=== PATIENT | female | born 1950 | race Caucasian/White ===

== ENCOUNTER 2022-06-22 08:56 | Outpatient (CLI) | payer BC, SELFPAY ==
--- NOTE | 2022-06-22 09:15 | CRLHL7_ITS ---
For Patients: As a result of the Century Cures Act, medical imaging exams and procedure reports are released immediately into your electronic medical record. You may view this report before your referring provider. If you have questions, please contact your health care provider. BILATERAL SCREENING MAMMOGRAM WITH COMPUTER-AIDED DETECTION AND TOMOSYNTHESIS TECHNIQUE: CC and MLO views were obtained. These mammographic images have been obtained using full-field digital technique. These mammographic images were interpreted with the benefit of computer-aided detection. Breast Tomosynthesis was used in this interpretation. COMPARISON FILM: 06/16/21, 06/12/20. FINDINGS: There are scattered areas of fibroglandular density IMPRESSION: There is no radiographic evidence for malignancy. ASSESSMENT: BI-RADS Category 1: Negative RECOMMENDATION: Routine screening mammogram in 1 year. A lay language report of this examination will be provided to the patient. Wanda Sanchez M.D. Diagnostic/Breast Radiologist [email or web address] RG/Dictated by: Wanda Sanchez MD @ 06/22/2022 10:48:00 AM (Electronically Signed)
== END 2022-06-22 08:57 | disposition home or self-care (01) ==
LOC: MAMMO 08:57
PROVIDERS: PCP Internal Medicine; Visit Provider Internal Medicine
DX: Z12.31 Encounter for screening mammogram for malignant neoplasm of breast (principal)
CPT/HCPCS: 77063; 77067

== ENCOUNTER 2022-06-24 14:00 | Outpatient (CLI) | payer MEDICARE, SELFPAY ==
--- NOTE | 2022-06-24 14:30 | CRLHL7_ITS ---
For Patients: As a result of the Century Cures Act, medical imaging exams and procedure reports are released immediately into your electronic medical record. You may view this report before your referring provider. If you have questions, please contact your health care provider. DXA BONE MINERAL DENSITY STUDY Reason for exam: Osteopenia. Current height (in): 67. Weight (lb): 148. Menopause age: 57. Ethnicity: White. 1. Have you had a previous hip or vertebral fracture? No. 2. Have you had any fractures during your adult life which did not result from significant trauma (e.g., auto accident)? No. 3. Did either of your parents have a hip fracture? No. 4. Do you smoke? No. 5. Have you ever taken Glucocorticoids? No. 6. Do you have rheumatoid arthritis? No. 7. Do you have secondary osteoporosis? No. 8. Do you drink 3 or more alcoholic drinks per day? No. 9. Are you being treated for osteoporosis? No. 10. Have you ever taken any of the following medications: Actonel, Evista, Fosamax, Miacalcin, Reclast, Boniva, Forteo, HRT (i.e. estrogen/hormone therapy), Protelos, Prolia, Vitamin D, Calcium, other ??? please specify. ANSWER: Yes, Actonel, Reclast, vitamin D, calcium, Boniva. 11. Do you have any of the following medical conditions: Anorexia or bulimia, asthma or emphysema, end stage renal disease, hyperparathyroidism, any seizure disorders, cancer, inflammatory bowel diseases, hysterectomy, other ??? please specify. ANSWER: Yes, hysterectomy. 12. What was your maximum height (inches)? 67. 13. Do you perform weight bearing exercise regularly? Yes. 14. Do you regularly consume dairy products? Yes. 15. Do you drink caffeinated beverages? Yes. 16. At what age did your period start? 18. 17. Are you premenopausal? No. 18. How many full term pregnancies have you had? 2. 19. Have you ever missed your period for more than 6 months in a row (not including or menopause)? No. TECHNIQUE: Bone mineral density study was performed using the [facility]. FINDINGS: The results of the study expressed as bone mineral density (BMD) are as follows: Lumbar spine L1 to L4: BMD: 0.834 g/cm2. T-score: -1.9. Z-score: 0.2. Neck Left: BMD: 0.638 g/cm2. T-score: -1.9. Z-score: -0.1. Right: BMD: 0.694 g/cm2. T-score: -1.4. Z-score: 0.4. Total Left: BMD: 0.818 g/cm2. T-score: -1.0. Z-score: 0.5. Right: BMD: 0.897 g/cm2. T-score: -0.4. Z-score: 1.1 IMPRESSION: Osteopenia. *Comparison exams done prior to 02/2020 were performed on different unit, [employer]. COMPARISON: Compared with scan of 06/12/2020, the bone mineral density has increased by 4.2 percent at the hip. FRAX 10-year Fracture Risk Major Osteoporotic Fracture: 11 percent Hip Fracture: 1.9 percent Reported Risk Factors: [place] () Neck KAH=2820, BMI=23.2 Wanda Sanchez M.D. Diagnostic/Breast Radiologist [email or web address] RG/Dictated by: Wanda Sanchez MD @ 06/24/2022 3:24:00 PM (Electronically Signed)
== END 2022-06-24 14:01 | disposition home or self-care (01) ==
LOC: RAD 14:01
PROVIDERS: PCP Internal Medicine; Visit Provider Internal Medicine
DX: M85.852 Other specified disorders of bone density and structure, left thigh (principal)
CPT/HCPCS: 77080

== ENCOUNTER 2022-06-29 09:16 | Outpatient (CLI) | payer MEDICARE, SELFPAY | END 2022-06-29 09:17 | disposition home or self-care (01) | LOC: OP CLINIC 09:17 | PROVIDERS: PCP Internal Medicine; Visit Provider Surgery | DX: Z12.11 Encounter for screening for malignant neoplasm of colon (principal); K57.30 Diverticulosis of large intestine without perforation or abscess without bleeding; Z80.0 Family history of malignant neoplasm of digestive organs | CPT/HCPCS: 45378; 99153; J2250; J2405; J3010 ==

== ENCOUNTER 2022-12-21 08:56 | Outpatient (CLI) | payer MEDICARE, SELFPAY ==
--- NOTE | 2022-12-21 09:15 | MR_ITS ---
[facility] [address] [address] Phone:?[phone] Fax:?[phone] Referring Physician Information: Mary Cabrera M.D. [facility] [address] [facility] [address] Phone:?[phone] Fax:?[phone] Patient:?Sujatha Bower D.O.B:?1950 Sex:?Female Phone:?[phone] [facility] MRN:?[id number] Exam Date:?12/21/2022 ? EXAM: MRI EXAMINATION OF THE RIGHT SHOULDER CLINICAL INFORMATION: Right shoulder pain. Status post injury. No history of surgery to this area. Possible rotator cuff tendon tear. TECHNICAL INFORMATION: Coronal STIR as well as axial, sagittal and coronal PD and T2-weighted images were acquired. INTERPRETATION: Bones: There is no Hill-Sachs impaction deformity. Minimal osseous cystic changes alongside the AC joint. No other bone marrow edema pattern. Rotator Cuff: Series 4 image 11 as well as series 8 image 5 demonstrate a 4 mm moderate grade intrasubstance partial-thickness tear just posterior to the midportion of the supraspinatus tendon insertion. There are mild to moderate changes of supraspinatus tendinopathy. Mild infraspinatus insertional tendinopathy. The teres minor tendon is intact. The subscapularis tendon is intact. No appreciable rotator cuff muscle belly atrophy. Coracoacromial arch: There is no discrete subacromial osseous spur. The bony acromiohumeral interval is measuring 8 mm. There is no thickening identified of the coracoacromial ligament. Acromioclavicular joint: There is a moderate appearance of AC joint DJD. Undersurface productive changes and resultant mild underlying supraspinatus deformity. Moderate fluid and edema signal within the subacromial/subdeltoid bursa areas. Biceps tendon: The long head biceps tendon is intact and nondisplaced from the bicipital groove. No evidence for a tendon tear or any appreciable changes of tendinopathy. Glenohumeral joint and labrum: There is a small glenohumeral joint effusion. No discrete loose body within the joint. Osteochondral surfaces appear relatively preserved. There is an undersurface tear involving the superior aspect of the labrum. No other definite evidence for labral tear. No discrete paralabral cyst is identified. CONCLUSION: 1. Mild to moderate supraspinatus tendinopathy. There is an associated small sized, moderate grade intrasubstance partial tear of the tendon insertion. 2. 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 There is a moderate appearance of subacromial/subdeltoid bursitis. 3. Unremarkable and intact long head biceps tendon without tendon subluxation from the bicipital groove. 4. No appreciable glenohumeral chondromalacia. There is a small joint effusion. 5. There is an undersurface tear involving the superior labrum, without paralabral cyst. KES Electronically signed on 12/21/2022 10:51:00 AM by Cecil Rose M.D.
== END 2022-12-21 08:57 | disposition home or self-care (01) ==
PROVIDERS: PCP Internal Medicine; Visit Provider Internal Medicine
DX: M25.511 Pain in right shoulder (principal); M19.011 Primary osteoarthritis, right shoulder; S43.431D Superior glenoid labrum lesion of right shoulder, subsequent encounter; M75.51 Bursitis of right shoulder
CPT/HCPCS: 73221

== ENCOUNTER 2023-02-07 09:46 | Outpatient (RCR) | payer MEDICARE, SELFPAY ==
--- NOTE | 2023-02-07 10:38 | PT.OPEX ---
PT [place] Outpatient Eval INITIAL EVALUATION NEED SIGNATURE PT [facility] Outpatient Eval Start: 02/07/23 07:38 Freq: Status: Active Protocol: Document 02/07/23 07:38 ETHEL (Rec: 02/07/23 10:34 ETHEL [id number]) E-signed By Sadiq Cardozo DPT Physical Therapy Outpatient Evaluation Insurance Information Recert Due Date 05/03/23 Insurance Name Medicare B,Blue [employer] Shield Medical Diagnosis Rt shoulder RC tear Treating Diagnosis right shoulder pain muscle weakness Referring MD marisa coronado Subjective Subjective Sujatha returns into clinic dealing with R shoulder pain secondary to a tear. She will undergo RCR in march. States she was somewhat undecided on what to do for her HEP that she was last given. Also has some questions about what to expect with RCR surgery and rehab timeline. Date of Surgery (If applicable) 03/28/23 Current Work Status Retired Objective Other/Pertinent Objective SHOULDER AROM WNL on L Flexion: R 145 Abduction: R 140 External Rotation: R 85 NECK/SHOULDER MMT: WNL on L Shoulder shrug: R 5/5 Shoulder flexion: R 4/5 Shoulder abduction: R 4-/5 Shoulder External Rotation: R4 - /5 Shoulder Internal Rotation: R4 + /5 Elbow flexion: R 4+/5 Elbow extension R 5/5 TX: reviewed and discussed what HEP to continue you with banded scaption x 10 with yellow band standing wand flexion x 10 standing wand scaption x 10 standing wand ir x 10 standing wand ER x 10 Assessment Assessment/Impression .assess Pt is a 72 yr old female who presents with concerns of Right shoulder RC tear. She came today hoping to get a HEP that would help prepare for RCR so she has better outcomes . Tolerated session well with demonstration of pain free ROM and strength. Plan of Care Rehabilitation Potential Good Physical Therapy Goals GOAL Pt will be independent with HEP within 1 visit to allow for independence and continued improvement past formal therapy Coordination/Communication With Referral Source Treatment Plan/Direct Interventions Self-Care/Home Management, Therapeutic Activities, Therapeutic Exercises Frequency/Duration 1 visit Patient Will Be Discharged From Therapy Independent w/HEP Evaluation Billing Untimed Code Treatment Minutes 17 Complexity Low Certification Information Initial Certification Date 02/07/23 Ending Certification Date 05/03/23 Physician Comment/Change : Physician NPI Number #
== END 2023-06-07 23:59 | disposition home or self-care (01) ==
PROVIDERS: PCP Internal Medicine; Visit Provider Orthopaedic Surgery Sports Medicine
DX: M19.011 Primary osteoarthritis, right shoulder (principal); S46.011D Strain of muscle(s) and tendon(s) of the rotator cuff of right shoulder, subsequent encounter; M25.511 Pain in right shoulder; M62.81 Muscle weakness (generalized); Z51.89 Encounter for other specified aftercare
CPT/HCPCS: 97110; 97161

== ENCOUNTER 2023-06-23 09:46 | Outpatient (CLI) | payer MEDICARE, SELFPAY ==
--- NOTE | 2023-06-23 10:15 | CRLHL7_ITS ---
For Patients: As a result of the Cures Act, medical imaging exams and procedure reports are released immediately into your electronic medical record. You may view this report before your referring provider. If you have questions, please contact your health care provider. BILATERAL SCREENING MAMMOGRAM WITH COMPUTER-AIDED DETECTION AND TOMOSYNTHESIS TECHNIQUE: CC and MLO views were obtained. These mammographic images have been obtained using full-field digital technique. These mammographic images were interpreted with the benefit of computer-aided detection. Breast Tomosynthesis was used in this interpretation. COMPARISON FILM: 06/22/22, 06/16/21, 06/12/20. FINDINGS: There are scattered areas of fibroglandular density IMPRESSION: There is no radiographic evidence for malignancy. ASSESSMENT: BI-RADS Category 2: Benign RECOMMENDATION: Routine screening mammogram in 1 year. A lay language report of this examination will be provided to the patient. Nnamdi Casas M.D. Diagnostic Radiologist [email or web address] KEEGAN/candy Transcribed: 2:45 p.mPadmini gupta/Dictated by: Nnamdi Casas MD @ 06/23/2023 12:47:00 PM (Electronically Signed)
== END 2023-06-23 09:47 | disposition home or self-care (01) ==
LOC: MAMMO 09:47
PROVIDERS: PCP Internal Medicine; Visit Provider Internal Medicine
DX: Z12.31 Encounter for screening mammogram for malignant neoplasm of breast (principal)
CPT/HCPCS: 77063; 77067

== ENCOUNTER 2023-06-28 09:42 | Outpatient (CLI) | payer MEDICARE, SELFPAY | END 2023-06-28 09:43 | disposition home or self-care (01) | PROVIDERS: PCP Internal Medicine; Visit Provider Internal Medicine | DX: M85.80 Other specified disorders of bone density and structure, unspecified site (principal) | CPT/HCPCS: 80048; 82306 ==

== ENCOUNTER 2023-07-27 13:51 | Outpatient (RCR) | payer MEDICARE, SELFPAY ==
--- NOTE | 2023-06-30 12:18 | URNOTE ---
Request received for authorization for?Zoledronic Acid (Reclast) ([id number]). Prior authorization is approved, pt carries [employer] of [place] approved Reclast from 06/29/2023 to 12/25/2023.
[2023-07-27 14:02] VITALS: BP 108/64; PULSE 92; RESP 17; TEMP 35.7; O2SAT 94
[2023-07-27] MEDS: 0.9 % SODIUM CHLORIDE 250 ml IV (14:45)
== END 2024-01-23 23:59 | disposition home or self-care (01) ==
LOC: CCIC 13:51
PROVIDERS: PCP Internal Medicine; Referring Provider Internal Medicine; Visit Provider Clinical Nurse Specialist
DX: M85.80 Other specified disorders of bone density and structure, unspecified site (principal)
CPT/HCPCS: 96374; J3489; J7050

== ENCOUNTER 2023-08-18 08:23 | Outpatient (CLI) | payer MEDICARE, SELFPAY | END 2023-08-18 08:24 | disposition home or self-care (01) | LOC: NFLDREF 08-19 06:39 | PROVIDERS: PCP Internal Medicine; Referring Provider Internal Medicine; Visit Provider Nurse Practitioner Family | DX: R10.9 Unspecified abdominal pain (principal) | CPT/HCPCS: 87086 ==

== ENCOUNTER 2024-10-17 13:19 | Outpatient (CLI) | payer MEDICARE, SELFPAY | END 2024-10-17 13:20 | disposition home or self-care (01) | LOC: RAD 13:21 | PROVIDERS: PCP Family Medicine; Visit Provider Family Medicine | DX: Z78.0 Asymptomatic menopausal state (principal); M85.89 Other specified disorders of bone density and structure, multiple sites | CPT/HCPCS: 77080 ==